=== PATIENT | female | born 1950 | race Hispanic/Latino ===

== ENCOUNTER 2019-04-05 08:47 | Emergency (ER) | payer MEDICARE ==
[~2019-04-05] VITALS: Ht 152.4 cm; Wt 59.0 kg
[2019-04-05] MEDS ORDERED: ONDANSETRON HCL 4 MG ORAL DISINTEGRATING TAB ONE (09:11)
[2019-04-05] MEDS ORDERED: ONDANSETRON HCL 4 MG ORAL DISINTEGRATING TAB PO ONE (09:15)
[2019-04-05] MEDS ORDERED: HYDROCODONE/APAP 5MG-325MG TAB PO ONE (09:15)
--- NOTE | 2019-04-05 10:28 | Diagnostic Imaging Report ---
EXAM: CT Chest, high resolution, WITHOUT contrast INDICATION: ^fall rib and back pain ^[id number] ^0969 COMPARISON: None TECHNIQUE: Chest was scanned utilizing a multidetector helical scanner from the lung apex through the level of the adrenal glands without administration of IV contrast. Absence of intravenous contrast decreases sensitivity for detection of lymphadenopathy and vascular pathology. Scan was performed during supine expiration, supine inspiration and prone inspiration. Coronal and sagittal reformations were obtained. HRCT protocol was performed. IV CONTRAST: None COMPLICATIONS: None RADIATION DOSE: Total DLP: 471.1 mGy*cm Estimated effective dose: (DLP x 0.014 x size factor) mSv CTDIvol has been reviewed. It is below the limits set by the Radiation Protocol Committee (RPC). FINDINGS: LINES/ TUBES: None. LUNGS AND AIRWAYS: There is a calcified gonadal in the right upper lobe. Otherwise the Lungs are unremarkable. Airways are normal. PLEURA: The pleural spaces are clear. HEART AND MEDIASTINUM: There are scattered subcentimeter hypodensities in the thyroid. No mediastinal, hilar or axillary lymphadenopathy. The heart is normal in size.. There is no pericardial effusion. . Main pulmonary artery measures in diameter . UPPER ABDOMEN: Gallbladder sludge/stone with marked dilatation of the gallbladder.. Ill-defined low-density lesion in the hepatic dome is incompletely characterized in the noncontrast exam. There is a punctate 2 mm nonobstructing calculus in the right kidney. BONES: No new rib fracture. Old healing fracture deformities of the right lateral third and fourth ribs. Chronic fracture deformity of the multiple vertebral bodies including T8, T12, L1, and L2. SOFT TISSUES: Unremarkable. IMPRESSION: Old healing fracture deformities of the right lateral third and fourth ribs. No new rib fracture. Chronic fracture deformity of the multiple vertebral bodies including T8, T12, L1, and L2. Gallbladder sludge/stone with marked dilatation of the gallbladder. Ill-defined low-density lesion in the hepatic dome is incompletely characterized in the noncontrast exam. Punctate 2 mm nonobstructing calculus in the right kidney. Signed by: Raz Zavala MD on 04/05/2019 10:26 AM
[2019-04-05 10:54] VITALS: BP 135/72
== END 2019-04-05 10:52 | disposition home or self-care (01) ==
LOC: FSED 08:47
DX: S20.212A Contusion of left front wall of thorax, initial encounter (principal); W01.0XXA Fall on same level from slipping, tripping and stumbling without subsequent striking against object, initial encounter; Y92.008 Other place in unspecified non-institutional (private) residence as the place of occurrence of the external cause; I10 Essential (primary) hypertension
CPT/HCPCS: 71250; 99283; Q0162

== ENCOUNTER 2019-04-10 12:26 | Inpatient (IN) | payer MEDICARE ==
[~2019-04-10] VITALS: Ht 152.4 cm; Wt 55.8 kg
--- OUTSIDE RECORDS SUMMARY | 2019-04-10 12:29 | XMS REPORT ---
Author Author [facility] Address Unknown Phone Unavailable Care Team Providers Care Tunnel Heading Supervisor Name Role Phone Kamilla POLANCO Unavailable Unavailable Problems This patient has no known problems. Allergies, Adverse Reactions, Alerts This patient has no known allergies or adverse reactions. Medications This patient has no known medications. Results Test Description Test Time Test Comments Text Results Atomic Results Result Comments CT CHEST W/O CONTRAST-HOPD 2019-04-05 10:11:00 [place] [address] Patient Name: RANDELL LAW MR #: [id number] : 1950 Age/Sex: 68/F Req #: [id number] Adm Physician: Ordered by: JUDITH POLANCO MD Report #: [id number] Location: [facility] Room/Bed: Procedure: [id number] HOPD/CT CHEST W/O CONTRAST-HOPD Exam Date: 04/05/19 Exam Time: 938 REPORT STATUS: Signed EXAM: CT Chest, high resolution, WITHOUT contrast INDICATION: fall rib and back pain [id number] COMPARISON: None TECHNIQUE: Chest was scanned utilizing a multidetector helical scanner from the lung apex through the level of the adrenal glands without administration of IV contrast. Absence of intravenous contrast decreases sensitivity for detection of lymphadenopathy and vascular pathology. Scan was performed during supine expiration, supine inspiration and prone inspiration. Coronal and sagittal reformations were obtained. HRCT protocol was performed. IV CONTRAST: None COMPLICATIONS: None RADIATION DOSE: Total DLP: 471.1 mGy*cm Estimated effective dose: (DLP x 0.014 x size factor) mSv CTDIvol has been reviewed. It is below the limits set by the Radiation Protocol Committee (RPC). FINDINGS: LINES/ TUBES: None. LUNGS AND AIRWAYS: There is a calcified gonadal in the right upper lobe. Otherwise the Lungs are unremarkable. Airways are normal. PLEURA: The pleural spaces are clear. HEART AND MEDIASTINUM: There are scattered subcentimeter hypodensities in the thyroid. No mediastinal, hilar or axillary lymphadenopathy. The heart is normal in size.. There is no pericardial effusion. . Main pulmonary artery measures in diameter . UPPER ABDOMEN: Gallbladder sludge/stone with marked dilatation of the ga llbladder.. Ill-defined low-density lesion in the hepatic dome is incompletely characterized in the noncontrast exam. There is a punctate 2 mm nonobstructing calculus in the right kidney. BONES: No new rib fracture. Old healing fracture deformities of the right lateral third and fourth ribs. Chronic fracture deformity of the multiple vertebral bodies including T8, T12, L1, and L2. SOFT TISSUES: Unremarkable. IMPRESSION: Old healing fracture deformities of the right lateral third and fourth ribs. No new rib fracture. Chronic fracture deformity of the multiple vertebral bodies including T8, T12, L1, and L2. Gallbladder sludge/stone with marked dilatation of the gallbladder. Ill-defined low-density lesion in the hepatic dome is incompletely characterized in the noncontrast exam. Punctate 2 mm nonobstructing calculus in the right kidney. Signed by: Raz Durant MD on 04/05/2019 10:26 AM Dictated By: RAZ DURANT MD Elect ronically Signed By: RAZ DURANT MD on 04/05/19 1026 Transcribed By: PONCHO on 04/05/19 1026 COPY TO: JUDITH POLANCO MD
[2019-04-10] MEDS ORDERED: HYDROCODONE/APAP 5MG-325MG TAB PO ONE (13:00)
--- NOTE | 2019-04-10 14:09 | Diagnostic Imaging Report ---
CT THORACIS SPINE [facility] HISTORY: Fall COMPARISON: None. TECHNIQUE: Axial CT images of the thoracic spine were obtained without intravenous contrast. Coronal/sagittal reformations were created. One or more of the following dose reduction techniques were used: Automated exposure control, adjustment of the mA and/or kV according to patient size, and/or utilization of iterative reconstruction technique. FINDINGS: Bone demineralization limits evaluation. Thoracic kyphosis is preserved. There is no significant scoliosis or subluxation. Severe T8 vertebral compression/burst fracture with near complete loss of vertebral body height is associated with mild fracture retropulsion that causes at least mild canal stenosis at T8-T9; this fracture appears old/chronic. There is an associated old, unhealed, mildly displaced fracture of the right T8 transverse process. Additional, associated old nondisplaced fractures of the bilateral medial T8 ribs appear nearly completely healed. Mild to moderate T12 vertebral compression/incomplete burst fracture with up to 50% loss of vertebral body height anteriorly is associated with mild fracture retropulsion that causes minimal canal stenosis at T11-T12; this fracture appears old/chronic. No definite additional acute fracture or compression deformity is seen in the thoracic spine. No gross spinal canal mass is seen. The paravertebral and paraspinal soft tissues are unremarkable. The disc spaces are preserved with minimal spondylotic changes, most prominent at T11-T12. There is no significant canal or foraminal stenosis. There is mild bibasilar atelectasis and/or scarring. Aortic and coronary artery calcifications are present. IMPRESSION: 1. Severe T8 vertebral compression/burst and mild to moderate T12 vertebral compression/incomplete burst fractures may be old/chronic. Associated mild T8-T9 and minimal T11-T12 canal stenoses due to fracture retropulsion. 2. Otherwise, no acute osseous abnormalities in the thoracic spine. 3. Underlying diffuse bone demineralization. Signed by: Dr. Turner Chen M.D. on 04/10/2019 2:07 PM
--- NOTE | 2019-04-10 14:14 | Diagnostic Imaging Report ---
CT LUMBAR SPINE WITHOUT-HOPD HISTORY: Fall COMPARISON: Concurrent thoracic spine CT TECHNIQUE: Axial CT images of the lumbar spine were obtained without contrast. Coronal and sagittal reconstructions obtained from the axial data. One or more of the following dose reduction techniques were used: Automated exposure control, adjustment of the mA and/or kV according to patient size, and/or utilization of iterative reconstruction technique. DISCUSSION: The bones are diffusely demineralized. There are 5 nonrib-bearing lumbar vertebral bodies. Lumbar lordosis is preserved. There is no significant scoliosis or subluxation. Moderate L1 incomplete burst fracture with up to 50% loss of vertebral body height centrally is age indeterminate. Mild fracture retropulsion causes at least mild canal stenosis at T12-L1 (along with disc bulge). Mild L2 vertebral compression fracture may be chronic; there is no significant retropulsion. Otherwise, no definite additional acute fracture or compression deformity is seen in the lumbar spine. No gross spinal canal mass is seen. The paravertebral and paraspinal soft tissues are unremarkable. The disc spaces are preserved with minimal spondylotic changes. Mild bilateral sacroiliac degenerative changes are also present. Aortoiliac calcified atherosclerosis is present. IMPRESSION: 1. Age indeterminate moderate L1 incomplete vertebral burst fracture - this could be acute or subacute. Mild fracture retropulsion causes at least mild canal stenosis at T12-L1. 2. Mild L2 vertebral compression fracture may be chronic. No significant retropulsion. 3. Otherwise, no acute osseous abnormalities in the lumbar spine. Signed by: Dr. Turner Chen M.D. on 04/10/2019 2:12 PM
--- NOTE | 2019-04-10 16:39 | NUR ---
[facility] CALLED FOR TRANSFER
[2019-04-10] MEDS ORDERED: ULTRAM50 MG PO (16:59)
--- NOTE | 2019-04-10 17:38 | NUR ---
RCD PT FROM ER BY BED PT IS ALERT AND ORIENTED VITALS CHECKED PT RESTING ON BED ADMISSION ASSESSMENT AND HISTORY DONE IV PATENT BY SALINE FLUSH INSTRUCTED THE PT REGARDING HOSPITAL POLICY AND ROUTINE BED LOW AND LOCKED CALL LIGHT IN REACH Addendum: 04/10/19 at 1910 by Barby Tavarez RN NOT FROM [facility]
[2019-04-10 18:20] VITALS: BP 127/60
[2019-04-10] MEDS ORDERED: GLIPIZIDE5 MG PO (18:20)
[2019-04-10] MEDS ORDERED: METFORMIN HCL500 MG PO (18:20)
[2019-04-10 18:21] VITALS: BP 127/60
--- NOTE | 2019-04-10 18:49 | NUR ---
PT RESTING ON BED BED SIDE REPORT GIVEN TO ONCOMING NURSE
[2019-04-10 19:03] VITALS: BP 127/60
[2019-04-10 20:00] VITALS: BP 115/56
[2019-04-10 21:00] VITALS: BP 115/56
[2019-04-10] MEDS ORDERED: ACETAMINOPHEN 325 MG TAB PO PRN (23:45)
[2019-04-10] MEDS ORDERED: ONDANSETRON HCL INJ 2MG/ML 2ML 2 MG/ML VIAL IV PRN (23:45)
[2019-04-10] MEDS ORDERED: ONDANSETRON HCL 4 MG ORAL DISINTEGRATING TAB PO PRN (23:45)
[2019-04-10] MEDS ORDERED: DEXTROSE 50% SYRINGE 50 ML IV PRN (23:45)
[2019-04-11] VITALS (7 sets, daily range): BP systolic 97–118; BP diastolic 51–63
[2019-04-11 06:16] LABS: BASOPHILS % 0.1 % (0.0-1.0); EOSINOPHILS # (AUTO) 0.2 (0.0-0.4); EOSINOPHILS % 2.5 % (0.0-6.0); HEMATOCRIT 38.4 % (34.2-44.1); HEMOGLOBIN 12.3 g/dL (12.0-16.0); LYMPHOCYTES # (AUTO) 1.2 (1.0-3.2); LYMPHOCYTES % 16.7 % (18.0-39.1); MEAN CORPUSCULAR VOLUME 87.3 fL (81-99); MONOCYTES # (AUTO) 0.9 (0.2-0.8); MONOCYTES % 13.5 % (4.4-11.3); NEUTROPHILS # (AUTO) 4.6 (2.1-6.9); NEUTROPHILS % 66.9 % (38.7-80.0); PLATELET COUNT 276 x10e3/uL (140-360); RED CELL DISTRIBUTION WIDTH 13.3 % (11.7-14.4)
[2019-04-11 06:42] LABS: ANION GAP 14.2 mmol/L (8-16); BLOOD UREA NITROGEN 8 mg/dL (7-26); BUN/CREATININE RATIO 14 (6-25); CALCIUM 9.5 mg/dL (8.4-10.2); CARBON DIOXIDE 27 mmol/L (22-29); CHLORIDE 100 mmol/L (98-107); CREATININE, SERUM 0.59 mg/dL (0.57-1.11); EST GLOMERULAR FILTRATION RATE > 60 ML/MIN (60-); GLUCOSE 100 mg/dL (74-118); POTASSIUM 4.2 mmol/L (3.5-5.1); SODIUM 137 mmol/L (136-145)
--- NOTE | 2019-04-11 07:00 | NUR ---
BEDSIDE SHIFT REPORT RECEIVED FROM THE BULK SYSTEM OPERATOR RN. EDUCATED PT ABOUT FALL PRECAUTIONS. PT VERBALIZED UNDERSTANDING. CALL LIGHT WITH IN EASY REACH. INSTRUCTED PT TO USE CALL LIGHT FOR ALL THE NEEDS. BED IS LOW AND LOCKED. SIDE RAILS X2. PT DENIES NEEDS AT THIS TIME.
[2019-04-11] MEDS: INSULIN LISPRO 100 UNIT/1 ML 3ML VIAL SQ SCH ×4 (07:30→21:00)
--- NOTE | 2019-04-11 12:50 | NUR ---
PT OFF UNIT FOR MRI AND CT IN SAFE CONDITION.
[2019-04-11] MEDS: HYDROCODONE/APAP 5MG-325MG TAB PO PRN (13:13)
[2019-04-11] MEDS ORDERED: IOPAMIDOL 370 MG/ML 200 ML INFUS..BTL INJ ONE (14:00)
[2019-04-11] MEDS ORDERED: SODIUM CHLORIDE 0.9% 50ML 50 ML ONE (14:00)
--- NOTE | 2019-04-11 14:00 | NUR ---
PT BACK TO UNIT. FAMILY AT BEDSIDE. PT DENIES NEEDS AT THIS TIME.
--- NOTE | 2019-04-11 14:25 | Diagnostic Imaging Report ---
Examination: MRI SPINE THORACIC WO CONTRAST History: Back pain with fracture seen on CT. Comparison studies: Thoracic and lumbar spine CTs performed April 10, 2019 Technique: Sagittal T1 and STIR; axial, sagittal and coronal T2 Intravenous contrast: None. Findings: Alignment: Exaggeration of normal thoracic kyphosis. No scoliosis. Thoracic cord: Normal in signal and morphology. The tip of the conus is at L1. Soft tissues: No T2 hyperintense inflammatory changes. Paraspinal muscles: Preserved. No volume loss. Vertebrae: No infection or neoplasm. Acute compression fractures of the T8, and L1 vertebrae with increased STIR signal is identified. Due to retropulsion of the inferior endplate towards these anterior epidural space, there is mild canal stenosis at T8-T9. There is vertebral plana deformity of T8 and with 55% height loss of L1. Chronic compression fractures of T12 with 40% height loss and L2 with 30% height loss. There is diffuse osseous demineralization. Degenerative changes: No disc herniation at any of the thoracic levels. IMPRESSION: 1. Acute compression fracture of the T8 and L1 vertebrae with vertebral plana deformity of T8 and mild canal stenosis at T8-T9 due to posterior retropulsion of the inferior endplate. 2. Chronic compression fractures of the T12 and L2 vertebrae. 3. Diffuse osseous demineralization. Signed by: Dr. Lisa Martins M.D. on 04/11/2019 2:23 PM
[2019-04-11] MEDS: TRAMADOL HCL 50 MG TAB PO PRN ×2 (14:57→21:35)
--- NOTE | 2019-04-11 15:15 | Diagnostic Imaging Report ---
Examination: MRI SPINE LUMBAR WO CONTRAST History: Fall with back injury. Back pain. Comparison studies: CT of lumbar spine performed April 10, 2019. Technique: Sagittal, coronal and axial T2 , sagittal T1 and STIR; axial spin density oblique. Findings: Number of lumbar vertebral bodies: Five. Alignment: Normal lordosis. No scoliosis. Soft tissues: No T2 hyperintense inflammatory changes. Posterior paraspinal soft tissues and muscles: No abnormality. Lower thoracic cord: Normal in signal and morphology. The tip of the conus is at T12-L1. Cauda equina: No masses. No arachnoiditis. Vertebrae: No infection or neoplasm. Acute compression fracture of L1 and chronic compression fracture of L2 with 55% and 30% height loss, respectively. There is mild retropulsion of the superior endplate of L1 causing mild canal stenosis at T12-L1. Degenerative changes: L1-L2: Small central disc protrusion. No foraminal or canal stenosis. L2-L3 through L5-S1: No abnormalities. IMPRESSION: Acute compression fracture of L1 with mild canal stenosis and 55% height loss. Chronic compression fracture of L2 without canal compromise and 30% height loss. Small central disc protrusion at L1-L2 without canal or foraminal stenosis. Signed by: Dr. Lisa Martins M.D. on 04/11/2019 3:13 PM
--- NOTE | 2019-04-11 15:19 | Diagnostic Imaging Report ---
EXAM: CT Abdomen and Pelvis WITH contrast INDICATION: ^abd pain/both hip pain/history liver ca ^[id number] ^1330 COMPARISON: CT thoracolumbar spine 04/10/2019, chest 04/05/2019 TECHNIQUE: Abdomen and pelvis were scanned utilizing a multidetector helical scanner from the lung base to the pubic symphysis after administration of IV contrast. Coronal and sagittal reformations were obtained. Routine protocol was performed. Scan was performed when during portal venous phase. IV CONTRAST: 100 mL of Isovue 370 ORAL CONTRAST: Water COMPLICATIONS: None RADIATION DOSE: Total DLP: 879 mGy*cm Estimated effective dose: (DLP x 0.015 x size factor) mSv CTDIvol has been reviewed. It is below the limits set by the Radiation Protocol Committee (RPC). Dose modulation, iterative reconstruction, and/or weight based adjustment of the mA/kV was utilized to reduce the radiation dose to as low as reasonably achievable. FINDINGS: LINES and TUBES: None. LOWER THORAX: Unremarkable HEPATOBILIARY: Two adjacent heterogeneously hypodense masses of the hepatic dome that measure 3 x 2.4 cm and 6.1 x 3 cm, respectively (image 10 series 2). The smaller more lateral mass appears to contain internal enhancement. No discrete biliary ductal dilatation. GALLBLADDER: The gallbladder is distended and contains dependent layering sludge. No discrete wall thickening or pericholecystic fluid. SPLEEN: No splenomegaly. PANCREAS: No focal masses or ductal dilatation. ADRENALS: No adrenal nodules KIDNEYS/URETERS: Kidneys enhance symmetrically. No hydronephrosis. No cystic or solid mass lesions. No stones. GI TRACT: No abnormal distention, wall thickening, or evidence of bowel obstruction. PELVIC ORGANS/BLADDER: Unremarkable. LYMPH NODES: No lymphadenopathy. VESSELS: There is moderate atherosclerotic disease in the aorta and major arterial branches. PERITONEUM / RETROPERITONEUM: No free air or fluid. BONES: Diffuse osseous demineralization. Vertebral compression deformities of T8, T12, L1, and L2. The T8 and L1 fractures appear acute. The T8 fracture demonstrates vertebral plana deformity. SOFT TISSUES: Unremarkable. IMPRESSION: 1. Two adjacent solid masses of the hepatic dome are worrisome for malignancy, either metastatic or of primary liver origin. 2. Distended gallbladder with layering gallbladder sludge. The CT findings are equivocal for acute cholecystitis. Consider correlation with right upper quadrant sonography. 3. Diffuse osseous demineralization with multilevel thoracolumbar compression fractures. The fractures at T8 and L1 appear acute. Signed by: Arya Macdonald MD on 04/11/2019 3:16 PM
--- NOTE | 2019-04-11 16:00 | NUR ---
DR. VERA AT BEDSIDE. JAN TO D/C PT PER THE
[2019-04-11] MEDS: SENNA-S TABLET PO SCH (16:13)
--- NOTE | 2019-04-11 16:26 | NUR ---
PAGED DR. EDMOND PER DR. VERA. NO D/C PER DR. EDMOND. INFORMED THE SAME TO PT. PT AND FAMILY DENIED FURTHER NEEDS.
--- NOTE | 2019-04-11 19:00 | NUR ---
BEDSIDE SHIFT REPORT GIVEN TO THE SCREW MACHINE REPAIRER RN. PT DENIED FURTHER NEEDS.
[2019-04-12] VITALS (7 sets, daily range): BP systolic 101–120; BP diastolic 57–72
[2019-04-12] MEDS: HYDROCODONE/APAP 5MG-325MG TAB PO PRN (00:47)
--- NOTE | 2019-04-12 07:00 | NUR ---
BEDSIDE SHIFT REPORT RECEIVED FROM THE GEOGRAPHIC INFORMATION SYSTEMS DIRECTOR RN. EDUCATED PT ABOUT FALL PRECAUTIONS.PT VERBALIZED UNDERSTANDING CALL LIGHT WITH IN EASY REACH. INSTRUCTED PT TO USE CALL LIGHT FOR ALL THE NEEDS. BED IS LOW AND LOCKED. SIDE RAILS X2. BED ALARM IS ON. FAMILY MEMBER AT BEDSIDE. PT DENIES NEEDS AT THIS TIME.
[2019-04-12] MEDS: INSULIN LISPRO 100 UNIT/1 ML 3ML VIAL SQ SCH ×4 (08:15→21:00)
[2019-04-12] MEDS: SENNA-S TABLET PO SCH ×2 (08:23→17:13)
[2019-04-12] MEDS: TRAMADOL HCL 50 MG TAB PO PRN ×3 (08:23→23:34)
[2019-04-12] MEDS ORDERED: ACETAMINOPHEN/CODEINE 300MG - 30MG TAB PO PRN (09:15)
--- NOTE | 2019-04-12 13:30 | NUR ---
SIGNED CHOICE FOR [facility], FILED IN CHART AND FAXED CLINICALS
--- NOTE | 2019-04-12 15:00 | NUR ---
Evaluated patient for PT services today. Mid-back pain was at 5/10. Practiced on log-roll technique for supine<>sit. Educated on back precautions: no slouching, no lifting, no trunk twisting and no trunk bending . Patient with good response and return demo. Ambulated ~250 ft using RW and tolerated well. Pt will benefit from a RW for home use. Pt requested a back brace to check trunk flexion (Cuneiform Anterior Spinal Hyperextension [BARTON] brace or [place]-type brace). Functional mobility- lu, pt may be D/C'd home. Addendum: 04/12/19 at 1507 by Jay Dotson PT Amended: Links added.
--- NOTE | 2019-04-12 19:00 | NUR ---
BEDSIDE SHIFT REPORT GIVEN TO THE UNDERGROUND MINE SUPERINTENDENT RN. PT DENIED FURTHER NEEDS.
[2019-04-13] VITALS (8 sets, daily range): BP systolic 97–122; BP diastolic 59–73
--- NOTE | 2019-04-13 07:00 | NUR ---
BEDSIDE SHIFT REPORT RECEIVED FROM THE MANGANESE BREAKER RN. EDUCATED PT ABOUT FALL PRECAUTIONS.PT VERBALIZED UNDERSTANDING. CALL LIGHT WITH IN EASY REACH. INSTRUCTED PT TO USE CALL LIGHT FOR ALL THE NEEDS. BED IS LOW AND LOCKED. SIDE RAILS X2. PT DENIES NEEDS AT THIS TIME.
[2019-04-13] MEDS: INSULIN LISPRO 100 UNIT/1 ML 3ML VIAL SQ SCH ×4 (07:45→20:40)
[2019-04-13] MEDS: SENNA-S TABLET PO SCH ×2 (08:02→17:46)
[2019-04-13] MEDS: TRAMADOL HCL 50 MG TAB PO PRN ×2 (08:02→17:46)
--- NOTE | 2019-04-13 11:18 | NUR ---
at bedside. PT recommended a back brace to check trunk flexion (Cuneiform Anterior Spinal Hyperextension [BARTON] brace or [place]-type brace). Informed the same to Dr. Crouch at bedside.
--- NOTE | 2019-04-13 19:00 | NUR ---
BEDSIDE SHIFT REPORT GIVEN TO THE ENERGY BROKER RN. PT DENIED FURTHER NEEDS.
[2019-04-14] VITALS: BP 97/69
[2019-04-14 04:00] VITALS: BP 104/63
--- NOTE | 2019-04-14 07:00 | NUR ---
RCD PT AT BED PT IS ALERT AND ORIENTED PT RESTING ON BED NO SIGNS OF ANY DISTRESS NOTED IV PATENT IV PATENT BY SALINE FLUSH BED LOW AND LOCKED CALL LIGHT IN REACH
[2019-04-14] MEDS: INSULIN LISPRO 100 UNIT/1 ML 3ML VIAL SQ SCH ×2 (07:30→11:30)
[2019-04-14 08:00] VITALS: BP 117/68
[2019-04-14 08:36] VITALS: BP 117/68
[2019-04-14] MEDS: SENNA-S TABLET PO SCH (09:00)
--- NOTE | 2019-04-14 09:00 | NUR ---
CALLED NURSE LET KNOW HOME HEALTH WAS SET UP ON SUNDAY AND PT SHOULD HAVE DISCHARGED. NURSE VANCE TO SPEAK WITH AND FOLLOW THROUGH.
[2019-04-14] MEDS ORDERED: ULTRAM 50MG50 MG PO (10:44)
--- NOTE | 2019-04-14 10:55 | NUR ---
PROVIDED LETTER THAT STATES PT IS IN HOSPITAL AND PROVIDED CARD FOR QUESTIONS.
[2019-04-14 12:00] VITALS: BP 117/65
--- NOTE | 2019-04-14 12:26 | NUR ---
IMM letter delivered and explained to pt. She verbalized understanding. Signed copy placed in chart. copy given to pt. Home health information given to pt. CM asked pt to give them a call if she does not hear from them within 24 hrs of discharge. RAVINDRA spoke with Negar Le with [facility]. Informed her that pt will discharge today. States they will see pt tomorrow. .
--- NOTE | 2019-04-14 13:36 | NUR ---
PATIENT WENT HOME IN SAFE CONDITION WITH HER SON
--- NOTE | 2019-04-15 08:34 | Discharge Summary ---
FINAL DIAGNOSES: 1. Acute compression fractures of L1 with mild canal stenosis and 55% height loss. 2. Chronic compression fracture of L1 without canal compromise and 30% height loss. 3. Small central disk protrusion at L1-L2 without canal or foraminal stenosis. 4. Lower back pain, much improved. 5. Baseline hepatic cancer. SUMMARY: A 68-year-old female with acute back pain was found to have compression fracture as mentioned above. The patient is otherwise stable. She was seen by Dr. Salazar and recommended pain control. No surgical intervention. The patient has received physical therapy. She is doing much better now. She is stable. Home health has been arranged for physical therapy at home and continue with home medication. I add on tramadol 50 mg q.6h. as needed for pain. The patient to follow up with her family doctor for continue with her management. MD CAROLINE Aguirre/DONI /[id number]
== END 2019-04-14 13:46 | disposition home or self-care (01) | DRG 552 ==
LOC: FSED 12:26 → ERHOLD 15:13 → MED/SURG2 17:44
PROVIDERS: ADMIT Internal Medicine; ATTEND Internal Medicine
DX: S32.011A Stable burst fracture of first lumbar vertebra, initial encounter for closed fracture (principal); M48.56XA Collapsed vertebra, not elsewhere classified, lumbar region, initial encounter for fracture; C22.9 Malignant neoplasm of liver, not specified as primary or secondary; I10 Essential (primary) hypertension; E78.5 Hyperlipidemia, unspecified; M19.90 Unspecified osteoarthritis, unspecified site; E11.9 Type 2 diabetes mellitus without complications; W19.XXXA Unspecified fall, initial encounter; M25.552 Pain in left hip; M48.061 Spinal stenosis, lumbar region without neurogenic claudication; M51.26 Other intervertebral disc displacement, lumbar region
CPT/HCPCS: 36415; 72128; 72131; 72146; 72148; 74177; 80048; 80053; 82607; 82746; 82948; 83036; 84443; 85025; 99284; Q9967

== ENCOUNTER 2019-04-19 11:23 | Emergency (ER) | payer MEDICARE ==
[~2019-04-19] VITALS: Ht 152.4 cm; Wt 55.8 kg
[~2019-04-19 11:23] MED LIST: GLIPIZIDE5 MG PO; METFORMIN HCL500 MG PO; ULTRAM 50MG50 MG PO; ULTRAM50 MG PO
[2019-04-19 12:03] LABS: BASOPHILS % 0.3 % (0.0-1.0); EOSINOPHILS % 0.6 % (0.0-6.0); HEMATOCRIT 44.3 % (34.2-44.1); HEMOGLOBIN 14.2 g/dL (12.0-16.0); LYMPHOCYTES # (AUTO) 1.3 (1.0-3.2); LYMPHOCYTES % 18.1 % (18.0-39.1); MEAN CORPUSCULAR HEMOGLOBIN 27.4 pg (28-32); MEAN CORPUSCULAR HGB CONC 32.1 g/dL (31-35); MEAN CORPUSCULAR VOLUME 85.4 fL (81-99); MONOCYTES # (AUTO) 0.6 (0.2-0.8); MONOCYTES % 8.6 % (4.4-11.3); NEUTROPHILS # (AUTO) 5.2 (2.1-6.9); PLATELET COUNT 338 x10e3/uL (140-360); RED BLOOD COUNT 5.19 x10e6/uL (3.6-5.1); RED CELL DISTRIBUTION WIDTH 12.9 % (11.7-14.4)
[2019-04-19 12:11] LABS: BILIRUBIN,URINE NEGATIVE (NEGATIVE); CLARITY,URINE CLEAR (CLEAR); COLOR,URINE YELLOW (YELLOW); KETONES,URINE NEGATIVE (NEGATIVE); LEUKOCYTE ESTERASE ,URINE NEGATIVE (NEGATIVE); NITRITE,URINE NEGATIVE (NEGATIVE); PROTEIN,URINE DIPSTICK 2+ (NEGATIVE); URINE UROBILINOGEN 0.2 mg/dL (0.2 - 1)
[2019-04-19] MEDS ORDERED: SODIUM CHLORIDE 0.9% 1000ML 1,000 ML IV STA (12:15)
[2019-04-19 12:21] LABS: ALANINE AMINOTRANSFERASE 16 IU/L (0-55); ALBUMIN 3.9 g/dL (3.5-5.0); ALBUMIN/GLOBULIN RATIO 0.8 (0.8-2.0); ALKALINE PHOSPHATASE 278 IU/L (40-150); ANION GAP 15.2 mmol/L (8-16); BACTERIA,URINE FEW /HPF; BLOOD UREA NITROGEN 13 mg/dL (7-26); BUN/CREATININE RATIO 20 (6-25); CALCIUM 10.3 mg/dL (8.4-10.2); CARBON DIOXIDE 29 mmol/L (22-29); CHLORIDE 97 mmol/L (98-107); CREATINE KINASE 15 IU/L (29-168); CREATININE, SERUM 0.66 mg/dL (0.57-1.11); EPITHELIAL CELLS,URINE MODERATE /LPF; EST GLOMERULAR FILTRATION RATE > 60 ML/MIN (60-); GLUCOSE 122 mg/dL (74-118); LIPASE 9 U/L (8-78); POTASSIUM 4.2 mmol/L (3.5-5.1); RBC,URINE 0-5 /HPF (0-5); SODIUM 137 mmol/L (136-145); WBC,URINE (MAN) 0-5 /HPF (0-5)
[2019-04-19] MEDS ORDERED: PIPER-TAZ 3.375 GM 50 ML IV STA (13:06)
--- NOTE | 2019-04-19 13:25 | Diagnostic Imaging Report ---
History:Headache, vomiting. Comparison studies:None Technique: Axial images were obtained from the skull base to the vertex. Coronal and sagittal images reconstructed from the axial data. Intravenous contrast: None Dose modulation, iterative reconstruction, and/or weight based adjustment of the mA/kV was utilized to reduce the radiation dose to as low as reasonably achievable. Findings: Scalp/skull: No abnormalities. Extra-axial spaces: No masses. No fluid collections. Brain sulci: Mildly prominent. Ventricles: Mild compensatory dilatation. No hydrocephalus. Parenchyma: Subtle hypodensities in the supratentorial white matter are small vessel ischemic changes. No masses, hemorrhage, acute or chronic cortical vascular insults. Sellar/suprasellar region: No abnormalities. Craniocervical junction: Patent foramen magnum. No Chiari one malformation. Incidental findings: Atherosclerotic calcifications in the carotid siphons and vertebral arteries . Impression: No acute abnormalities. Chronic findings: 1. Mild generalized volume loss. 2. Mild supratentorial white matter small vessel ischemic changes. Signed by: DR Shayne Moulton M.D. on 04/19/2019 1:22 PM
--- NOTE | 2019-04-19 13:31 | Diagnostic Imaging Report ---
EXAMINATION: CHEST SINGLE (PORTABLE) INDICATION: Headache, vomiting. COMPARISON: CT chest 04/05/2019. FINDINGS: TUBES and LINES: None. LUNGS: Lungs are moderately inflated. There is no evidence of pneumonia or pulmonary edema. PLEURA: No pleural effusion or pneumothorax. HEART AND MEDIASTINUM: The cardiomediastinal silhouette is unremarkable. BONES AND SOFT TISSUES: No acute osseous abnormality. Remote healed right sided rib fractures. UPPER ABDOMEN: No free air under the diaphragm. IMPRESSION: No acute thoracic abnormality. Signed by: Dr. Eileen Flores MD on 04/19/2019 1:29 PM
--- NOTE | 2019-04-19 16:06 | Diagnostic Imaging Report ---
EXAM: CT Abdomen and Pelvis WITH contrast INDICATION: Abdominal pain. COMPARISON: CT Abdomen/Pelvis 04/11/2019, CT thoracolumbar spine 04/10/2019, chest 04/05/2019 TECHNIQUE: Abdomen and pelvis were scanned utilizing a multidetector helical scanner from the lung base to the pubic symphysis after administration of IV contrast. Coronal and sagittal reformations were obtained. Routine protocol was performed. Scan was performed when during portal venous phase. IV CONTRAST: 100 mL of Isovue 370 ORAL CONTRAST: Water COMPLICATIONS: None RADIATION DOSE: Total DLP: 196.1 mGy*cm Estimated effective dose: (DLP x 0.015 x size factor) mSv CTDIvol has been reviewed. It is below the limits set by the Radiation Protocol Committee (RPC). Dose modulation, iterative reconstruction, and/or weight based adjustment of the mA/kV was utilized to reduce the radiation dose to as low as reasonably achievable. FINDINGS: LINES and TUBES: None. LOWER THORAX: Coronary atherosclerosis. HEPATOBILIARY: Two adjacent heterogeneously hypodense masses of the hepatic dome that measure 3 x 2.4 cm and 5.6 x 3 cm, respectively (series 2, image 13), unchanged accounting for differences in technique. There appears to be focal intrahepatic ductal dilatation inferior to the lateral mass, as seen on series 2, image 20. GALLBLADDER: The gallbladder is distended and contains dependent layering sludge. No discrete wall thickening or pericholecystic fluid. SPLEEN: No splenomegaly. PANCREAS: No focal masses or ductal dilatation. ADRENALS: No adrenal nodules KIDNEYS/URETERS: Kidneys enhance symmetrically. No hydronephrosis. No cystic or solid mass lesions. No stones. GI TRACT: No abnormal distention, wall thickening, or evidence of bowel obstruction. PELVIC ORGANS/BLADDER: Unremarkable. LYMPH NODES: No lymphadenopathy. VESSELS: There is moderate atherosclerotic disease in the aorta and major arterial branches. Prominent pelvic varices. PERITONEUM / RETROPERITONEUM: No free air or fluid. BONES: Diffuse osseous demineralization. Vertebral compression deformities of T8, T12, L1, and L2. The T8 and L1 fractures appear unchanged from prior CT.The T8 fracture demonstrates vertebral plana deformity. SOFT TISSUES: Unremarkable. IMPRESSION: Distended gallbladder with layering gallbladder sludge. No specific CT findings of acute cholecystitis. If of clinical concern, right upper quadrant ultrasound may considered for further evaluation. Two adjacent solid masses of the hepatic dome are suspicious for malignancy, either metastatic or primary liver origin, as before. Diffuse osseous demineralization with multilevel thoracolumbar compression fractures. The fractures at T8 and L1 are unchanged from prior CT on 04/11/2019, acute at that time. Signed by: Dr. Eileen Flores MD on 04/19/2019 4:04 PM
[2019-04-19 17:06] VITALS: BP 113/63
[2019-04-19] MEDS ORDERED: IOPAMIDOL 370 MG/ML 200 ML INFUS..BTL INJ ONE (17:55)
[2019-04-19] MEDS ORDERED: SODIUM CHLORIDE 0.9% 50ML 50 ML ONE (17:55)
== END 2019-04-19 17:19 | disposition home or self-care (01) ==
LOC: ER 11:23
DX: R10.84 Generalized abdominal pain (principal); K80.20 Calculus of gallbladder without cholecystitis without obstruction; E11.9 Type 2 diabetes mellitus without complications; Z79.84 Long term (current) use of oral hypoglycemic drugs; Z85.05 Personal history of malignant neoplasm of liver
CPT/HCPCS: 36415; 70450; 71045; 74177; 80053; 81001; 82550; 82553; 83605; 83690; 84484; 85025; 87086; 93005; 99284; J2543; J7030; Q9967